=== PATIENT | female | born 1980 | race Caucasian/White ===

== ENCOUNTER 2017-05-13 22:39 | Emergency (ER) | payer BC ==
[~2017-05-13] VITALS: Ht 167.6 cm; Wt 120.3 kg
[~2017-05-13 22:39] MED LIST: BACTRIM,SEPT1 TABLET PO; CELEXA10 MG PO; CELEXA20 MG PO; CITALOPRAM HBR20 MG PO; FERROUS SULFAT325 MG PO; FISH OIL 1,0001 EAC7 PO; FLEXERIL10 MG PO; GABAPENTIN600 MG PO; GEMFIBROZIL600 MG PR; GLUCOPHAGE1000 MG PO; LASIX20 MG PO; LISINOPRIL10 MG PR; LISINOPRIL20 MG PO; LOPID600 MG PO; METFORMIN HCL1000 M1 PO; METFORMIN HCL1000 MG PO; NEURONTIN300 MG PO; PAXIL20 MG PO; PREDNISONE20 MG PO; PRINIVIL10 MG PO; PROMETHAZINE HC25 M1 PO; TYLENOL EXTRA500 MG PO; TYLENOL REGULA325 MG PO; ULTRAM50 MG PO; VENTOLIN HFA18 GM IH; VITAMIN D2000 UNIT PO; ZESTRIL,PRINIVI20 MG PO
[2017-05-13] MEDS ORDERED: MOTRIN800 MG PO (23:03)
[2017-05-13 23:46] LABS: HEMATOCRIT 35.8 % (36.0-46.0); MCH 28.9 PG (29.0-34.0); MCHC 34.9 G/DL (30.0-36.0); MCV 82.7 FL (83-99); MEAN PLAT.VOLUME 9.3 uM^3 (9.5-12.4); PLATELET COUNT 345 K/uL (156-360); RBC DIS.WIDTH-CV 13.6 % (11.8-14.6); RBC DIS.WIDTH-SD 41.1 % (39-53); RED BLOOD COUNT 4.33 M/uL (3.80-5.20); WHITE BLOOD COUNT 13.4 K/uL (4.1-10.2)
[2017-05-14 00:14] LABS: CHLORIDE 105 mEq/L (99-109); SODIUM 137 mEq/L (136-147)
[2017-05-14 00:15] LABS: GLUCOSE 118 mg/dL (70-99)
[2017-05-14 00:17] LABS: ANION GAP 12 MEQ/L (2-14)
[2017-05-14 00:19] LABS: GFR ESTIMATE (CALCULATED) > 59 mL/min/
[2017-05-14 00:20] LABS: UREA NITROGEN (BUN) 10 mg/dL (9-23)
[2017-05-14 00:28] LABS: TROP-I INTERPRETATION NEGATIVE; TROPONIN-I < 0.01 ng/mL (0.0-0.30)
[2017-05-14 01:02] VITALS: BP 132/75
== END 2017-05-14 01:03 | disposition home or self-care (01) ==
LOC: EME 22:39
PROVIDERS: Emergency Medicine
DX: M25.519 Pain in unspecified shoulder (principal); R20.2 Paresthesia of skin; M79.601 Pain in right arm; M79.602 Pain in left arm; I10 Essential (primary) hypertension; E78.5 Hyperlipidemia, unspecified; E11.9 Type 2 diabetes mellitus without complications; Z79.84 Long term (current) use of oral hypoglycemic drugs; F17.200 Nicotine dependence, unspecified, uncomplicated
CPT/HCPCS: 80048; 84484; 85027; 93005; 99281; 99284; G0480; J1885